=== PATIENT | male | born 1985 | race Caucasian/White ===

== ENCOUNTER 2018-02-01 16:32 | Inpatient (IN) | payer OTHER ==
[~2018-02-01] VITALS: Ht 182.9 cm; Wt 5.6 kg
[2018-02-01] MEDS ORDERED: HYDROCORTISONE10 MG (16:56)
[2018-02-01] MEDS ORDERED: TIROSINT112 MCG (16:56)
[2018-02-01] MEDS ORDERED: PANADOL EXTRA500 MG (16:57)
[2018-02-01] MEDS ORDERED: HYDROCODONE-IB1 EAC1 (16:58)
[2018-02-01] MEDS ORDERED: CORTEF20 MG (16:58)
[2018-02-01] MEDS ORDERED: [UNRECOGNIZED DRUG - OTHER] (16:59)
== END 2018-02-03 05:00 | disposition designated cancer center or children's hospital (05) | DRG 98 ==
LOC: ER 16:32 → SEC-K 02-02 08:01 → SURH 02-02 08:01
PROVIDERS: Anesthesiology Pain Medicine
PROC: 009U3ZX Drainage of Spinal Canal, Percutaneous Approach, Diagnostic (ICD-10-PCS; principal; 2018-02-02 17:00)
DX: G03.8 Meningitis due to other specified causes (principal); E23.2 Diabetes insipidus; E27.49 Other adrenocortical insufficiency; R11.12 Projectile vomiting; E89.0 Postprocedural hypothyroidism; E89.3 Postprocedural hypopituitarism